=== PATIENT | male | born 2005 | race Caucasian/White ===

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

== ENCOUNTER 2023-11-09 10:13 | Emergency (ER) | payer SELFPAY ==
[~2023-11-09] VITALS: Ht 172.7 cm; Wt 77.3 kg
[~2023-11-09 10:13] MED LIST changes: +ROBAXIN 50500 MG/TAB PO
[2023-11-09 10:18] VITALS: BP 147/104; TEMP 98.3
[2023-11-09] MEDS ORDERED: MOTRIN 800800 MG/TAB PO (10:35)
[2023-11-09] MEDS ORDERED: NORCO 325 MG-51 TAB PO (10:35)
[2023-11-09] MEDS ORDERED: FLEXERIL 1010 MG/TAB PO (10:35)
[2023-11-09 10:45] VITALS: PULSE 98
== END 2023-11-09 10:20 | disposition home or self-care (01) ==
LOC: COL.ER 10:13
DX: M54.6 Pain in thoracic spine (principal); M54.50 Low back pain, unspecified